=== PATIENT | male | born 1940 | race Caucasian/White ===

== ENCOUNTER 2018-08-23 14:54 | Inpatient (IN) | payer OTHER, BC ==
[2018-08-23] MEDS ORDERED: NA CHLORIDE 0.9% 1,000 ML ONE (15:39)
--- NOTE | 2018-08-23 15:54 | RAD REPORT ---
EXAM DESCRIPTION: RAD - Chest Single View - 08/23/2018 3:40 pm CLINICAL HISTORY: ABDOMINAL DISTENTION Chest pain. COMPARISON: Abdomen Acute Series dated 02/12/2017 FINDINGS: Portable technique limits examination quality. The lungs are grossly clear. The heart is normal in size. No displaced fractures. IMPRESSION: No acute intrathoracic process suspected.
[2018-08-23 15:56] LABS: Absolute Lymphocytes (CBC) 0.7 K/uL (0.7-4.9); Absolute Monocytes 0.8 K/uL (0.1-1.3); Absolute Neutrophil 9.4 K/uL (1.8-8.0); Basophils % 0.4 % (0-1.3); Eosinophils % 0.3 % (0-4.4); Hematocrit 49.3 % (39.6-49.0); Lymphocytes % 6.5 % (15.3-44.8); MPV 7.2 fL (7.6-11.3); Monocytes % 7.6 % (3.3-12.3); RBC Red Blood Cell Count 5.06 M/uL (4.33-5.43)
[2018-08-23 15:59] LABS: Protime INR 1.03
[2018-08-23] MEDS ORDERED: PROMETHAZINE 25 MG/ML VIAL ONE ×2 (16:04→18:43)
--- NOTE | 2018-08-23 16:24 | EKG ---
Test Date: 2018-08-23 Test Time: 15:42:51 Plate Embosser: ANA MEASUREMENT RESULTS: Intervals: Rate: 89 DE: 216 QRSD: 136 QT: 374 QTc: 455 [place]: P: 42 DE: 216 QRS: 0 T: -17 INTERPRETIVE STATEMENTS: Sinus rhythm with 1st degree AV block with premature atrial complexes Right bundle branch block Inferior infarct, age undetermined Abnormal ECG Compared to ECG 02/12/2017 09:44:50 Atrial premature complex(es) now present First degree AV block now present Right bundle-branch block now present Myocardial infarct finding now present Ventricular premature complex(es) no longer present Left ventricular hypertrophy no longer present Electronically Signed On 08-23-18 16:24:06 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
[2018-08-23 16:28] LABS: ALT/SGPT 25 U/L (12-78); AST/SGOT 27 U/L (15-37); Alkaline Phosphatase 75 U/L (45-117); BUN Blood Urea Nitrogen 16 mg/dL (7-18); Bicarbonate 28 mmol/L (21-32); Bilirubin Direct 0.5 mg/dL (0-0.2); Bilirubin Total 1.9 mg/dL (0.2-1.0); Glucose Level 135 mg/dL (74-106); Magnesium 2.2 mg/dL (1.8-2.4); NT PRO-BNP 49 pg/mL (<450); Protein, Total 7.6 g/dL (6.4-8.2); Sodium Level 141 mmol/L (136-145); Troponin (Emerg Dept Use Only) < 0.02 ng/mL (0.0-0.045)
[2018-08-23] MEDS ORDERED: FENTANYL CITR 100 MCG/2 ML ONE ×2 (17:16→20:12)
--- NOTE | 2018-08-23 18:56 | RAD REPORT ---
EXAM DESCRIPTION: CTAbdomen Pelvis W Contrast - 08/23/2018 6:26 pm CLINICAL HISTORY: Abdominal pain. Abd pain;Abdominal distention COMPARISON: Abdomen Pelvis W Contrast dated 02/12/2017 TECHNIQUE: Biphasic CT imaging of the abdomen and pelvis was performed with 100 ml non-ionic IV cont rast. All CT scans are performed using dose optimization technique as appropriate and may include automated exposure control or mA/KV adjustment according to patient size. FINDINGS: The lung bases are clear. Mild diffuse fatty liver is present. Cholecystectomy clips seen. The spleen, pancreas, adrenal glands and kidneys show no acute process. Multiple nonobstructing bilateral renal caliceal stones are prese nt. Several dilated small bowel loops are seen in the mid abdomen near the site of hernia mesh anteriorly . Focal point of transition is noted in the anterior mid abdomen (image 57/100). Findings are compati ble with a mild to mechanical small-bowel obstruction. Several diverticula are present involving the sigmoid colon. The appendix is normal. No evidence of significant lymphadenopathy. No suspicious bony findings. Small fat containing right inguinal hernia. IMPRESSION: Mild to moderate partial mechanical small-bowel obstruction is identified. Point of villanueva sition is identified in the anterior mid abdomen (image 57/100).
[2018-08-23] MEDS ORDERED: LIDOCAINE VISCOUS 2% SOLN 15 ML UDC ONE (20:01)
[2018-08-23] MEDS ORDERED: METRONIDAZOLE 500mg IVPB 500 MG/100 ML BAG IV ONE (20:02)
[2018-08-23] MEDS ORDERED: CIPROFLOXACIN 400mg IV 400 MG/200 ML BAG IV ONE (20:02)
--- NOTE | 2018-08-23 20:10 | EDPHYS ---
Physician Documentation [facility] Name: Saul Cherry Age: 77 yrs Sex: Male : 1940 Arrival Date: 08/23/2018 Time: 14:58 Bed 28 Private MD: out of town, doctor ED Physician Julio Jett HPI: 08/23 15:53 This 77 yrs old Male presents to ER via Ambulatory with complaints of snw Abdominal Pain, Vomiting. 15:53 The patient presents with abdominal pain abdominal distention in the upper abdomen, snw that is diffuse. Onset: The symptoms/episode began/occurred suddenly, 0220. The symptoms do not radiate. Associated signs and symptoms: Pertinent positives: nausea and vomiting. The symptoms are described as crampy, steady. Severity of pain: At its worst the pain was moderate severe. The patient has experienced a previous episode. It is unknown whether or not the patient has recently seen a physician. pt has had several abd surgeries. Dr. Castro has been his previous surgeon. Historical: - Allergies: 15:09 Fosamax; ss - Home Meds: 15:09 Lipitor 40 mg Oral tab 1 tab once daily [Active]; aspirin 81 mg Oral chew 1 tab once ss daily [Active]; allopurinol 100 mg Oral tab 1 tab once daily [Active]; levothyroxine 50 mcg tab 1 tab once daily [Active]; losartan 25 mg oral tab 1 tab once daily [Active]; - PMHx: 15:09 Hyperlipidemia; Hypothyroidism; Kidney stones; small bowel obstruction; ss - PSHx: 15:09 AAA repair; Hernia repair; Cholecystectomy; ss - Immunization history:: Adult Immunizations up to date. - Social history:: Smoking status: Patient uses tobacco products, chewing tobacco. - Ebola Screening: : Patient denies exposure to infectious person Patient denies travel to an Ebola-affected area in the 21 days before illness onset. ROS: 15:53 Constitutional: Negative for fever, chills, and weight loss, Eyes: Negative for injury, snw pain, redness, and discharge, ENT: Negative for injury, pain, and discharge, Neck: Negative for injury, pain, and swelling, Cardiovascular: Negative for chest pain, palpitations, and edema, Respiratory: Negative for shortness of breath, cough, wheezing, and pleuritic chest pain, Back: Negative for injury and pain, : Negative for injury, bleeding, discharge, and swelling, MS/Extremity: Negative for injury and deformity, Skin: Negative for injury, rash, and discoloration, Neuro: Negative for headache, weakness, numbness, tingling, and seizure. 15:53 Abdomen/GI: Positive for abdominal pain, nausea and vomiting, abdominal distension, began suddenly at 0220. Exam: 15:52 Constitutional: This is a well developed, well nourished patient who is awake, alert, snw and in no acute distress. Head/Face: Normocephalic, atraumatic. Eyes: Pupils equal round and reactive to light, extra-ocular motions intact. Lids and lashes normal. Conjunctiva and sclera are non-icteric and not injected. Cornea within normal limits. Periorbital areas with no swelling, redness, or edema. ENT: Nares patent. No nasal discharge, no septal abnormalities noted. Tympanic membranes are normal and external auditory canals are clear. Oropharynx with no redness, swelling, or masses, exudates, or evidence of obstruction, uvula midline. Mucous membranes moist. Neck: Trachea midline, no thyromegaly or masses palpated, and no cervical lymphadenopathy. Supple, full range of motion without nuchal rigidity, or vertebral point tenderness. No Meningismus. Chest/axilla: Normal chest wall appearance and motion. Nontender with no deformity. No lesions are appreciated. 15:52 Respiratory: Lungs have equal breath sounds bilaterally, clear to auscultation and percussion. No rales, rhonchi or wheezes noted. No increased work of breathing, no retractions or nasal flaring. 15:52 Back: No spinal tenderness. No costovertebral tenderness. Full range of motion. 15:52 MS/ Extremity: Pulses equal, no cyanosis. Neurovascular intact. Full, normal range of motion. Neuro: Awake and alert, GCS 15, oriented to person, place, time, and situation. Cranial nerves II-XII grossly intact. Motor strength 5/5 in all extremities. Sensory grossly intact. Cerebellar exam normal. Normal gait. Psych: Awake, alert, with orientation to person, place and time. Behavior, mood, and affect are within normal limits. 15:52 Cardiovascular: Rate: tachycardic, Rhythm: regular, Heart sounds: normal, Edema: pedal edema, that is mild, that is moderate. 15:52 Abdomen/GI: Inspection: scar(s), are noted in the midline, Bowel sounds: diminished, in the right upper quadrant and left upper quadrant, Palpation: mild abdominal tenderness, distended. 15:52 Skin: Appearance: Color: pale, Temperature: warm, Moisture: dry. Vital Signs: 15:09 BP 124 / 85; Pulse 107; Resp 17; Temp 97.5(O); Pulse Ox 95% on R/A; Weight 99.79 kg; ss Height 70 in. (177.80 cm); Pain 3/10; 16:10 BP 127 / 75; Pulse 86; Resp 18; Pulse Ox 95% on R/A; tw2 17:24 BP 137 / 82; Pulse 92; Resp 17; Pulse Ox 95% on R/A; Pain 8/10; tw2 18:37 BP 139 / 71; Pulse 103; Resp 18; Pulse Ox 95% on R/A; tw2 19:00 BP 122 / 73; Pulse 105; Resp 18; Pulse Ox 95% on R/A; tw2 20:00 BP 137 / 76; Pulse 107; Resp 20 S; Pulse Ox 90% on R/A; bb 21:00 BP 103 / 60; Pulse 104; Resp 14 S; Pulse Ox 92% on R/A; bb 22:08 BP 109 / 73; Pulse 101; Resp 18 S; Pulse Ox 96% on R/A; bb 15:09 Body Mass Index 31.57 (99.79 kg, 177.80 cm) ss MDM: 15:51 Patient medically screened. snw 18:33 Data reviewed: vital signs, nurses notes. Data interpreted: Pulse oximetry: on room air snw is 95 %. Interpretation: acceptable. ED course: pt with significant vomiting on the way back from CT, phenergan 12.5mg IV ordered. Discussed possible NGT insertion.. 08/23 15:22 Order name: Basic Metabolic Panel; Complete Time: 16:38 snw 08/23 15:22 Order name: CBC with Diff; Complete Time: 16:01 snw 08/23 15:22 Order name: LFT's; Complete Time: 16:38 snw 08/23 15:22 Order name: Magnesium; Complete Time: 16:38 snw 08/23 15:22 Order name: NT PRO-BNP; Complete Time: 16:38 snw 08/23 15:22 Order name: PT-INR; Complete Time: 16:03 snw 08/23 15:22 Order name: Troponin (emerg Dept Use Only); Complete Time: 16:38 snw 08/23 15:22 Order name: Blood Culture Adult (2) w 08/23 20:30 Order name: Urine Dipstick--Ancillary (enter results); Complete Time: 21:43 ag4 08/23 22:15 Order name: Basic Metabolic Panel EDMS 08/23 22:15 Order name: Basic Metabolic Panel EDMS 08/23 22:15 Order name: CBC with Automated Diff EDMS 08/23 22:15 Order name: CBC with Automated Diff EDMS 08/23 22:15 Order name: Lipase EDMS 08/23 15:22 Order name: XRAY Chest (1 view); Complete Time: 16:01 w 08/23 15:22 Order name: EKG; Complete Time: 15:23 w 08/23 15:22 Order name: Cardiac monitoring; Complete Time: 15:46 w 08/23 15:22 Order name: EKG - Nurse/Tech; Complete Time: 15:46 w 08/23 15:22 Order name: IV Saline Lock; Complete Time: 15:47 w 08/23 15:22 Order name: CT Abd/Pelvis - W/Contrast; Complete Time: 19:04 w 08/23 22:14 Order name: NPO [facility] 08/23 22:15 Order name: Lipase [facility] 08/23 15:22 Order name: Labs collected and sent; Complete Time: 15:47 w 08/23 15:22 Order name: O2 Per Protocol; Complete Time: 15:47 w 08/23 15:22 Order name: O2 Sat Monitoring; Complete Time: 15:47 w 08/23 19:42 Order name: NG Tube; Complete Time: 20:27 snw Administered Medications: 15:46 Drug: NS 0.9% 1000 ml Route: IV; Rate: 125 ml/hr; Site: left antecubital; tw2 23:04 Follow up: IV Status: Infusion continued upon admission bb 23:27 Follow up: IV Status: Completed infusion; IV Intake: 718ml bb 15:58 Drug: Phenergan 6.25 mg Route: IVP; Site: left antecubital; aj1 16:20 Follow up: Response: No adverse reaction; Nausea is decreased tw2 17:10 Drug: fentaNYL (PF) 50 mcg Route: IVP; Site: left antecubital; tw2 17:55 Follow up: Response: No adverse reaction tw2 18:35 Drug: Phenergan 12.5 mg Route: IVP; Site: left antecubital; tw2 19:00 Follow up: Response: No adverse reaction; Nausea is decreased tw2 20:14 Drug: Flagyl 500 mg Volume: 100 ml; Route: IVPB; Rate: 200 ml/hr; Infused Over: 30 bb mins; Site: left antecubital; 21:11 Follow up: IV Status: Completed infusion; IV Intake: 100ml bb 20:14 Drug: Ativan 1 mg Route: IVP; Site: left antecubital; bb 21:00 Follow up: Response: Marked relief of symptoms bb 20:14 Drug: fentaNYL (PF) 12.5 mcg Route: IVP; Site: left antecubital; bb 21:00 Follow up: Response: Pain is decreased bb 21:12 Drug: Cipro 400 mg Volume: 200 ml; Route: IVPB; Infused Over: 60 mins; Site: left bb antecubital; 22:12 Follow up: IV Status: Completed infusion; IV Intake: 200ml bb Disposition: 08/23/18 20:09 Hospitalization ordered by Alfredito Castro for Inpatient Admission. Preliminary diagnosis is Small bowel obstruction. - Bed requested for Telemetry/MedSurg (Inpatient). - Status is Inpatient Admission. bb - Condition is Stable. - Problem is an acute exacerbation. - Symptoms are unchanged. UTI on Admission? No Addendum: 08/25/2018 10:28 Co-signature as Attending Physician, Julio Jett MD. g s Signatures: Dispatcher [employer] EDNV Magdalena Vences RN SUNDAR ajDiane Velasquez RN RN kl Therrien, Shelly, SUSAN-C ADMITTING COUNSELOR-Estela Post RN RN bb Smirch, Shelby, RN RN ss Wise, Tara, RN RN tw2 Julio Jett MD MD Corrections: (The following items were deleted from the chart) 08/23 22:36 20:09 Hospitalization Ordered by Alfredito Castro MD for Inpatient Admission. Preliminary kl diagnosis is Small bowel obstruction. Bed requested for Telemetry/MedSurg (Inpatient). Status is Inpatient Admission. Condition is Stable. Problem is an acute exacerbation. Symptoms are unchanged. UTI on Admission? No. snw 23:27 22:36 08/23/2018 20:09 Hospitalization Ordered by Alfredito Castro MD for Inpatient bb Admission. Preliminary diagnosis is Small bowel obstruction. Bed requested for Telemetry/MedSurg (Inpatient). Status is Inpatient Admission. Condition is Stable. Problem is an acute exacerbation. Symptoms are unchanged. UTI on Admission? No. kl
--- NOTE | 2018-08-23 20:10 | ER ---
Nurse's Notes [facility] Name: Salu Cherry Age: 77 yrs Sex: Male : 1940 Arrival Date: 08/23/2018 Time: 14:58 Bed 28 Private MD: out of town, doctor Diagnosis: Small bowel obstruction Presentation: 08/23 15:04 Presenting complaint: Patient states: abd pain, N/V that began at 0200 this morning. Pt ss has a history of a bowel obstruction and is concerned that it may be another one. Transition of care: patient was not received from another setting of care. Onset of symptoms was August 23, 2018. Risk Assessment: Do you want to hurt yourself or someone else? Patient reports no desire to harm self or others. Initial Sepsis Screen: Does the patient meet any 2 criteria? No. Patient's initial sepsis screen is negative. Does the patient have a suspected source of infection? No. Patient's initial sepsis screen is negative. Care prior to arrival: None. 15:04 Method Of Arrival: Ambulatory ss 15:04 Acuity: TORRIE 3 ss Historical: - Allergies: 15:09 Fosamax; ss - Home Meds: 15:09 Lipitor 40 mg Oral tab 1 tab once daily [Active]; aspirin 81 mg Oral chew 1 tab once ss daily [Active]; allopurinol 100 mg Oral tab 1 tab once daily [Active]; levothyroxine 50 mcg tab 1 tab once daily [Active]; losartan 25 mg oral tab 1 tab once daily [Active]; - PMHx: 15:09 Hyperlipidemia; Hypothyroidism; Kidney stones; small bowel obstruction; ss - PSHx: 15:09 AAA repair; Hernia repair; Cholecystectomy; ss - Immunization history:: Adult Immunizations up to date. - Social history:: Smoking status: Patient uses tobacco products, chewing tobacco. - Ebola Screening: : Patient denies exposure to infectious person Patient denies travel to an Ebola-affected area in the 21 days before illness onset. Screenin:09 Abuse screen: Denies threats or abuse. Nutritional screening: No deficits noted. tw2 Tuberculosis screening: No symptoms or risk factors identified. Fall Risk None identified. Assessment: 16:03 General: Appears uncomfortable, Behavior is calm, cooperative, appropriate for age. tw2 Pain: Complains of pain in left upper quadrant and right upper quadrant. Neuro: Level of Consciousness is awake, alert, obeys commands, Oriented to person, place, time, situation. Cardiovascular: Heart tones S1 S2 Capillary refill < 3 seconds Patient's skin is warm and dry. Respiratory: Airway is patent Respiratory effort is even, unlabored, Respiratory pattern is regular, symmetrical, Breath sounds are clear bilaterally. GI: Abdomen is round distended, Bowel sounds present X 4 quads. Abdomen is tender to palpation X 4 quads. : No signs and/or symptoms were reported regarding the genitourinary system. EENT: No signs and/or symptoms were reported regarding the EENT system. Derm: No signs and/or symptoms reported regarding the dermatologic system. Musculoskeletal: Range of motion: intact in all extremities. 16:11 Reassessment: Patient appears in no apparent distress at this time. Patient and/or tw2 family updated on plan of care and expected duration. Pain level reassessed. Patient is alert, oriented x 3, equal unlabored respirations, skin warm/dry/pink. pt states "the pain comes in waves", asked he would like something for pain, pt states "no i hate to take stuff Im ok right now", pt instructed that if pain gets worse to feel free to press the call light. 16:33 Reassessment: pt attempted to drink oral contrast for CT at this time. will notify CT tw2 once pt has completed drink. 16:40 Reassessment: Patient and/or family updated on plan of care and expected duration. Pain tw2 level reassessed. Patient is alert, oriented x 3, equal unlabored respirations, skin warm/dry/pink. pt completed oral contrast, Josey,Tech in CT notified. 17:08 Reassessment: pt c/o worsening pain, provider notified, medicated as ordered. tw2 18:35 Reassessment: pt in w/c from CT, pt actively vomiting, medicated as ordered., pt now tw2 c/o pain, provider notified. 18:45 Reassessment: pt refused pain medicine at this time, states "i will just wait for a tw2 little bit". 19:30 Pain: Complains of pain in abdomen. Neuro: Level of Consciousness is awake, alert, bb obeys commands, Oriented to person, place, time, situation. Cardiovascular: Heart tones S1 S2 present Capillary refill < 3 seconds Patient's skin is warm and dry. Respiratory: Respiratory effort is even, unlabored, Respiratory pattern is regular, Breath sounds are clear bilaterally. GI: Abdomen is distended, Bowel sounds present X 4 quads. Abdomen is tender to palpation X 4 quads. Reports lower abdominal pain, upper abdominal pain. Derm: Skin is pink, warm \\T\\ dry. Musculoskeletal: Circulation, motion, and sensation intact. 20:30 Reassessment: No changes from previously documented assessment. IV site intact, patent bb with fluids infusing, family at bedside. 21:18 Reassessment: pt appears to be sleeping, eyes closed, resp unlabored, IV site intact, bb patent with fluids infusing awaiting room assignment. 22:06 Reassessment: pt appears to be sleeping, eyes closed, resp unlabored, NG tube to low bb intermittent suction with dark colored fluid, IV site intact, patent with fluids infusing awaiting room assignment. Vital Signs: 15:09 BP 124 / 85; Pulse 107; Resp 17; Temp 97.5(O); Pulse Ox 95% on R/A; Weight 99.79 kg; Height 70 in. (177.80 cm); Pain 3/10; 16:10 BP 127 / 75; Pulse 86; Resp 18; Pulse Ox 95% on R/A; tw2 17:24 BP 137 / 82; Pulse 92; Resp 17; Pulse Ox 95% on R/A; Pain 8/10; tw2 18:37 BP 139 / 71; Pulse 103; Resp 18; Pulse Ox 95% on R/A; tw2 19:00 BP 122 / 73; Pulse 105; Resp 18; Pulse Ox 95% on R/A; tw2 20:00 BP 137 / 76; Pulse 107; Resp 20 S; Pulse Ox 90% on R/A; bb 21:00 BP 103 / 60; Pulse 104; Resp 14 S; Pulse Ox 92% on R/A; bb 22:08 BP 109 / 73; Pulse 101; Resp 18 S; Pulse Ox 96% on R/A; bb 15:09 Body Mass Index 31.57 (99.79 kg, 177.80 cm) ED Course: 14:58 Patient arrived in ED. sb2 14:58 out of town, doctor is Private Physician. sb2 15:06 Triage completed. ss 15:09 Arm band placed on right wrist. ss 15:10 Placed in gown. Bed in low position. Adult w/ patient. residential monitor on. Pulse ox on. tw2 NIBP on. Warm blanket given. 15:18 Alicia Milton RN is Primary Nurse. tw2 15:20 Lanette Cuevas FNP-C is PHCP. snw 15:20 Julio Jett MD is Attending Physician. snw 15:35 Inserted saline lock: 20 gauge in left antecubital area, using aseptic technique. Blood tw2 collected. 15:40 XRAY Chest (1 view) In Process Unspecified. EDMS 18:25 CT completed. Patient tolerated procedure well. Patient moved back from CT. bq 18:26 CT Abd/Pelvis - W/Contrast In Process Unspecified. EDMS 19:00 Report given to SUNDAR Palmer. tw2 20:07 Alfredito Castro MD is Hospitalizing Provider. snw 20:27 NGT: inserted 16 Fr. via left nare. verified placement of air over stomach, verified bb return of gastric contents, to intermittent suction. Returned gastric contents. Patient tolerated well. 21:20 No provider procedures requiring assistance completed. Patient admitted, IV remains in bb place. Administered Medications: 15:46 Drug: NS 0.9% 1000 ml Route: IV; Rate: 125 ml/hr; Site: left antecubital; tw2 23:04 Follow up: IV Status: Infusion continued upon admission bb 23:27 Follow up: IV Status: Completed infusion; IV Intake: 718ml bb 15:58 Drug: Phenergan 6.25 mg Route: IVP; Site: left antecubital; aj1 16:20 Follow up: Response: No adverse reaction; Nausea is decreased tw2 17:10 Drug: fentaNYL (PF) 50 mcg Route: IVP; Site: left antecubital; tw2 17:55 Follow up: Response: No adverse reaction tw2 18:35 Drug: Phenergan 12.5 mg Route: IVP; Site: left antecubital; tw2 19:00 Follow up: Response: No adverse reaction; Nausea is decreased tw2 20:14 Drug: Flagyl 500 mg Volume: 100 ml; Route: IVPB; Rate: 200 ml/hr; Infused Over: 30 bb mins; Site: left antecubital; 21:11 Follow up: IV Status: Completed infusion; IV Intake: 100ml bb 20:14 Drug: Ativan 1 mg Route: IVP; Site: left antecubital; bb 21:00 Follow up: Response: Marked relief of symptoms bb 20:14 Drug: fentaNYL (PF) 12.5 mcg Route: IVP; Site: left antecubital; bb 21:00 Follow up: Response: Pain is decreased bb 21:12 Drug: Cipro 400 mg Volume: 200 ml; Route: IVPB; Infused Over: 60 mins; Site: left bb antecubital; 22:12 Follow up: IV Status: Completed infusion; IV Intake: 200ml bb Intake: 21:11 IV: 100ml; Total: 100ml. bb 22:12 IV: 200ml; Total: 300ml. bb 23:27 IV: 718ml; Total: 1018ml. bb Outcome: 20:09 Decision to Hospitalize by Provider. snw 21:20 Instructed on the need for admit. bb 23:02 Admitted to Tele accompanied by tech, via stretcher, room 213, with chart, Report bb called to Valery KWOK 23:02 Condition: stable 23:27 Patient left the ED. bb Signatures: Dispatcher [employer] EDMS Magdalena Vences RN RN aj1 Lanette Cuevas, FOUNDRY TENDER-C FOUNDRY TENDER-Josey Munguia Brenda RN RN bb Mattie Caldera, RN RN Alicia Barker RN RN tw2 Ginny Sanford sb2 Corrections: (The following items were deleted from the chart) 19:29 19:00 BP 122 / 73; Pulse 150bpm; Resp 18bpm; Pulse Ox 95% RA; tw2 tw2
[2018-08-23] MEDS ORDERED: LORazepam 2 MG/ML VIAL ONE (20:12)
[2018-08-23 21:39] LABS: Urine Blood 1+ (NEG); Urine Glucose NEGATIVE (NEG); Urine Protein NEGATIVE (NEG); Urine Specific Gravity 1.015 (1.005-1.030); Urine pH 6.5 (5.0-7.0)
[2018-08-23] MEDS: D5 0.45 NS 1,000 ML with POTASSIUM CL 40 MEQ IV SCH ×2 (22:14)
[2018-08-23] MEDS ORDERED: MORPHINE 4 MG/ML SYR IV PRN (22:14)
[2018-08-23] MEDS: CIPROFLOXACIN 400mg IV 400 MG/200 ML BAG IV SCH (22:14)
[2018-08-23] MEDS ORDERED: ONDANSETRON 4 MG/2 ML VIAL IV PRN (22:14)
[2018-08-23 23:45] VITALS: BMI 32.6
[2018-08-24] MEDS ORDERED: KCL 20 MEQ/100 mL IVPB 40 MEQ/200 ML BAG IV ONE (00:26)
[2018-08-24] MEDS ORDERED: D5 0.45 NS 0 ML IV ONE (00:27)
[2018-08-24] MEDS: D5 0.45 NS 1,000 ML with POTASSIUM CL 40 MEQ IV SCH ×10 (00:30→20:11)
[2018-08-24 01:25] LABS: Urine Appearance CLEAR; Urine Bilirubin NEGATIVE (NEG); Urine Blood 2+ (NEG); Urine Color YELLOW; Urine Glucose NEGATIVE (NEG); Urine Protein NEGATIVE (NEG); Urine Specific Gravity >=1.030 (1.005-1.030)
[2018-08-24 01:36] LABS: Urine Microscopic Reflex ORDER UMIC
[2018-08-24 02:30] LABS: Urine Bacteria <20 /HPF (NONE SEEN)
[2018-08-24 02:31] LABS: Urine Culture Reflex Order NOT NEEDED
[2018-08-24] MEDS: METRONIDAZOLE 500mg IVPB 500 MG/100 ML BAG IV SCH ×3 (05:08→20:11)
[2018-08-24] MEDS ORDERED: D5 0.45 NS 1,000 ML IV ONE (05:34)
[2018-08-24 06:04] LABS: Absolute Lymphocytes (CBC) 0.9 K/uL (0.7-4.9); Absolute Neutrophil 7.5 K/uL (1.8-8.0); Basophils % 0.2 % (0-1.3); Eosinophils % 0.6 % (0-4.4); Hematocrit 43.8 % (39.6-49.0); Lymphocytes % 9.3 % (15.3-44.8); MPV 7.2 fL (7.6-11.3); Monocytes % 10.5 % (3.3-12.3); RBC Red Blood Cell Count 4.52 M/uL (4.33-5.43)
[2018-08-24 06:32] LABS: Potassium 4.1 mmol/L (3.5-5.1)
[2018-08-24] MEDS: CIPROFLOXACIN 400mg IV 400 MG/200 ML BAG IV SCH ×2 (09:11→20:11)
[2018-08-24] MEDS: FENTANYL CITR 100 MCG/2 ML IV PRN (09:58)
[2018-08-24] MEDS ORDERED: DIAZEPAM 5 MG TABLET PO ONE ×2 (13:59→14:11)
[2018-08-24] MEDS ORDERED: MINERAL OIL 30 ML UCUP PO ONE (14:00)
--- NOTE | 2018-08-24 14:25 | P.HP ---
Certification for Inpatient Patient admitted to: Observation With expected LOS: <2 Midnights Patient will require the following post-hospital care: None Practitioner: I am a practitioner with admitting privileges, knowledge of patient current condition, hospital course, and medical plan of care. Services: Services provided to patient in accordance with Admission requirements found in Title 42 Section 412.3 of the Code of Federal Regulations Patient History Date of Service: 08/24/18 Allergies alendronate sodium [From Fosamax] Allergy (Verified 02/12/17 07:37) Hives Home Medications: Allopurinol [Zyloprim*] 1 tab PO BEDTIME 08/23/18 Aspirin Chewable [Aspirin Chewable*] 1 tab PO BEDTIME 08/23/18 Atorvastatin Calcium [Lipitor] 40 mg PO BEDTIME 08/23/18 Levothyroxine Sodium 1 tab PO 0630 08/23/18 Losartan Potassium [Cozaar] 1 tab PO BEDTIME 08/23/18 - Past Medical/Surgical History Has patient received pneumonia vaccine in the past: No Diabetic: No -: sbo (december 2015) -: AAA -: hyperlipidemia -: hypothyroidism -: AAA surgery -: hernia repair -: geronimo - Family History Father -: Lung disease Notes: Mother -: Heart disease, Hypertension, Diabetes Notes: rheumatic fever as child. Sister -: Other (see notes) Notes: hypothyroidism, mental disorder cannot recall "my sister lives her own life, cannot work, eats great, 75 years old" - Social History Smoking Status: Never smoker Alcohol use: No CD- Drugs: No Caffeine use: Yes Place of Residence: Home Review of Systems 10-point ROS is otherwise unremarkable Physical Examination - Vital Signs Temperature: 97.7 F Blood Pressure: 153/78 Pulse: 89 Respirations: 18 Pulse Ox (%): 94 - Physical Exam General: Alert, In no apparent distress HEENT: Sclerae nonicteric Neck: Supple Respiratory: Normal air movement Cardiovascular: Normal S1 S2 Gastrointestinal: W/out succussion splash (Mildly distended abdomen, and periumbilical soreness but no guarding or rebound), No masses, No rebound, No guarding - Studies Laboratory Data (last 24 hrs) 08/23/18 15:35: PT 12.2, INR 1.03 08/23/18 15:35: WBC 11.0 H, Hgb 16.9, Hct 49.3 H, Plt Count 249 08/23/18 15:35: Sodium 141, Potassium 4.0, BUN 16, Creatinine 1.31 H, Glucose 135 H, Magnesium 2.2, Total Bilirubin 1.9 H, AST 27, ALT 25, Alkaline Phosphatase 75 Imagings Data: The T scan demonstrates area of transition just below work he has mesh suggestive of partial small-bowel obstruction. Assessment and Plan - Plan This patient, who was well known to me, has a partial small-bowel obstruction. He has a history of adhesions in the past. At the current time is stable, minimal drainage out through his nasogastric tube. We will start him on a course of mineral oil, and intermittent suction of his NG tube. He will also receive IV pain medication as well as an oral Valium. The risks of this treatment, the possible need for further surgeries and procedures was outlined. He understands and is content with this plan. - Advance Directives Does patient have a Living Will: Yes Does patient have a Durable POA for Healthcare: Yes
[2018-08-25] MEDS ORDERED: MINERAL OIL 30 ML UCUP PO ONE
[2018-08-25] MEDS: METRONIDAZOLE 500mg IVPB 500 MG/100 ML BAG IV SCH ×3 (03:58→20:19)
[2018-08-25] MEDS: FENTANYL CITR 100 MCG/2 ML IV PRN (05:58)
[2018-08-25] MEDS: D5 0.45 NS 1,000 ML with POTASSIUM CL 40 MEQ IV SCH ×6 (05:59→18:51)
[2018-08-25] MEDS: CIPROFLOXACIN 400mg IV 400 MG/200 ML BAG IV SCH ×2 (09:35→20:19)
[2018-08-25] MEDS: ACETAMINOPHEN 500 MG TAB PO PRN ×2 (12:02→20:20)
--- NOTE | 2018-08-25 13:24 | P.PN ---
Date of Service: 08/25/18 S: Nasogastric tube has been removed this morning. Patient feels much better. Minimal abdominal discomfort. Has not eaten yet but has full liquids ordered for lunch. Small bowel movement today. He is passing gas per rectum. O: Abdomen remains soft, patient is sitting up in a chair. A: Partial small-bowel obstruction appears to have resolved with bowel rest and NG P: Continue current therapy
[2018-08-25 21:23] VITALS: O2SAT 97
[2018-08-26] MEDS: D5 0.45 NS 1,000 ML with POTASSIUM CL 40 MEQ IV SCH ×4 (01:10→04:24)
[2018-08-26] MEDS: METRONIDAZOLE 500mg IVPB 500 MG/100 ML BAG IV SCH (04:23)
[2018-08-26 06:41] VITALS: BP 109/66; TEMP 97.4
--- NOTE | 2018-09-02 13:40 | P.DS ---
Admission Date: 08/23/18 Discharge Date: 09/02/18 Discharge Condition: GOOD Reason for Admission: Partial small-bowel obstruction Brief History of Present Illness: This 77-year-old male presents emergency room with severe abdominal pain for diagnosis and treatment. Hospital Course: This patient presents emergency room with severe abdominal pain. He has had episodes of small-bowel obstruction a past. He was admitted for observation pain control. Over the course next 48 hr since partial small-bowel obstruction cleared, he was able tolerate diet, and was discharged home. He will follow up with me in my office. The patient was informed should ended any questions or problems, or recurrence of his issues to return to the emergency room in or contact me. He is were content with this course of action. Vital Signs/Physical Exam: Temp Pulse Resp BP Pulse Ox 97.4 F 101 H 18 109/66 93 08/26/18 04:00 08/26/18 04:00 08/26/18 04:00 08/26/18 04:00 08/26/18 04:00 Laboratory Data at Discharge: WBC 9.5 K/uL (4.3-10.9) 08/24/18 05:39 Hgb 15.2 g/dL (13.6-17.9) 08/24/18 05:39 Hct 43.8 % (39.6-49.0) 08/24/18 05:39 Plt Count 209 K/uL (152-406) 08/24/18 05:39 PT 12.2 SECONDS (9.5-12.5) 08/23/18 15:35 INR 1.03 08/23/18 15:35 Sodium 140 mmol/L (136-145) 08/24/18 05:39 Potassium 4.1 mmol/L (3.5-5.1) 08/24/18 05:39 BUN 15 mg/dL (7-18) 08/24/18 05:39 Creatinine 1.05 mg/dL (0.55-1.3) 08/24/18 05:39 Glucose 148 mg/dL (74-106) H 08/24/18 05:39 Magnesium 2.2 mg/dL (1.8-2.4) 08/23/18 15:35 Total Bilirubin 1.9 mg/dL (0.2-1.0) H 08/23/18 15:35 AST 27 U/L (15-37) 08/23/18 15:35 ALT 25 U/L (12-78) 08/23/18 15:35 Alkaline Phosphatase 75 U/L (45-117) 08/23/18 15:35 Lipase 77 U/L (73-393) 08/24/18 05:39 Home Medications: Allopurinol [Zyloprim*] 1 tab PO BEDTIME 08/23/18 Aspirin Chewable [Aspirin Chewable*] 1 tab PO BEDTIME 08/23/18 Atorvastatin Calcium [Lipitor] 40 mg PO BEDTIME 08/23/18 Levothyroxine Sodium 1 tab PO 0630 08/23/18 Losartan Potassium [Cozaar] 1 tab PO BEDTIME 08/23/18 Followup: Alfredito Castro MD [ACTIVE - CAN ADMIT] - 09/04/18 (Call for appointment)
== END 2018-08-26 08:11 | disposition home or self-care (01) | DRG 390 ==
LOC: ER 14:54 → ERHOLD 22:09 → 2ND 23:03
PROVIDERS: ADMIT Surgery; ATTEND Surgery
DX: K56.600 Partial intestinal obstruction, unspecified as to cause (principal); E78.5 Hyperlipidemia, unspecified; E03.9 Hypothyroidism, unspecified
CPT/HCPCS: 36415; 71045; 74177; 80048; 80076; 81003; 81015; 83690; 83735; 83880; 84484; 85025; 85610; 87040; 93005; 96361; 96365; 96367; 96375; 99285; J0744; J2405; J2550; J3010; J7030; Q9967

== ENCOUNTER 2019-09-02 06:35 | Observation (INO) | payer OTHER, BC ==
[2019-09-02] MEDS ORDERED: ONDANSETRON 4 MG/2 ML VIAL ONE ×2 (06:53→09:21)
[2019-09-02] MEDS ORDERED: NA CHLORIDE 0.9% 1,000 ML ONE ×2 (06:53→09:21)
[2019-09-02 07:02] LABS: Absolute Lymphocytes (CBC) 1.4 K/uL (0.7-4.9); Basophils % 0.6 % (0-1.3); Lymphocytes % 14.2 % (15.3-44.8); MPV 7.4 fL (7.6-11.3); RBC Red Blood Cell Count 4.91 M/uL (4.33-5.43)
[2019-09-02 07:18] LABS: Albumin 4.1 g/dL (3.4-5.0); Bilirubin Direct 0.5 mg/dL (0-0.2); Protein, Total 7.8 g/dL (6.4-8.2)
[2019-09-02] MEDS ORDERED: MORPHINE 4 MG/ML SYR ONE (09:21)
--- NOTE | 2019-09-02 09:25 | RAD REPORT ---
EXAM DESCRIPTION: CT - Abdomen Pelvis W Contrast - 09/02/2019 9:04 am CLINICAL HISTORY: hx of SBO;Abd pain, history of cholecystectomy and aortic aneurysm COMPARISON: Abdomen Pelvis W Contrast dated 08/23/2018; Abdomen Pelvis W Contrast dated 02/12/2017 TECHNIQUE: Biphasic, helical CT imaging of the abdomen and pelvis was performed following 100 ml non -ionic IV contrast. Oral contrast was given. All CT scans are performed using dose optimization technique as appropriate and may include automated exposure control or mA/KV adjustment according to patient size. FINDINGS: Fibrotic lung changes are present with no acute finding. No pericardial effusion. Liver shows a borderline or mild fatty infiltration pattern. No focal liver lesion. Spleen and pancre as show no suspicious findings. Cholecystectomy changes are present with no abnormal biliary tree dil atation. Symmetric renal function is seen with no hydronephrosis or suspicious renal mass. No pyelonephritis o r acute parenchymal process. Nonobstructing renal calculi are present. Partially filled urinary bladd er shows no acute finding. Prostate gland is prominent with a superior lobulated contour that project s into the bladder base. Correlation can be made with PSA values. No adrenal abnormalities. Patient has a very small hiatal hernia. No acute gastric finding. Duodenum is unremarkable. Prominent sigmoid diverticulosis is present without acute diverticulitis. No abnormal stool volume. The append ix is normal. Loops of jejunum are prominent. There is progressive dilatation of the distal jejunum a nd proximal ileum. Small bowel loops are dilated to 3 cm. Distal ileum is decompressed. Transition po int appears to be near the anterior abdominal wall where there is hernia mesh present. No new hernia. Adhesion would be the most likely etiology. An internal hernia would be possible. No free air, free fluid or inflammatory stranding. No mass or bulky lymphadenopathy. No suspicious bony findings. Aortic atherosclerotic changes are present without acute finding. Mild dilatation of the distal aorta and there is ectasia or mild dilatation of the bilateral common iliac arteries. IMPRESSION: Mechanical small bowel obstruction involving the distal jejunum and proximal ileum. Spivey sition point is present for small bowel abuts the hernia mesh in the right mid abdomen. Adhesion would be most likely etiology. An internal hernia would be possible. No mass lesion is prese nt. No free air, pneumatosis or other surgically emergent finding. Prominent lobulated prostate gland projecting into the bladder base. Correlation can be made with PSA values.
--- NOTE | 2019-09-02 09:43 | ER ---
Nurse's Notes [facility] Name: Saul Cherry Age: 78 yrs Sex: Male : 1940 Arrival Date: 09/02/2019 Time: 06:38 Bed 18 Private MD: Diagnosis: Mechanical small bowel obstruction Presentation: 09/02 07:00 Presenting complaint: Patient states: Pt reports he started having abdominal pain ea yesterday at 2030 reports pain got worse this AM. Reports two vomiting episodes. Transition of care: patient was not received from another setting of care. Onset of symptoms was September 02, 2019. Risk Assessment: Do you want to hurt yourself or someone else? Patient reports no desire to harm self or others. Initial Sepsis Screen: Does the patient meet any 2 criteria? No. Patient's initial sepsis screen is negative. Does the patient have a suspected source of infection? No. Patient's initial sepsis screen is negative. Care prior to arrival: None. 07:00 Method Of Arrival: Ambulatory ea 07:00 Acuity: TORRIE 3 ea Triage Assessment: 07:00 General: Appears in no apparent distress. uncomfortable, obese, Behavior is bp cooperative, appropriate for age, anxious. Pain: Complains of pain in abdomen. EENT: No deficits noted. Neuro: No deficits noted. Cardiovascular: No deficits noted. Respiratory: No deficits noted. GI: Reports intolerance of fluids, intolerance of food, nausea, vomiting. : No signs and/or symptoms were reported regarding the genitourinary system. Derm: No deficits noted. Musculoskeletal: No deficits noted. Historical: - Allergies: 07:07 Fosamax; ea - Home Meds: 07:07 losartan 25 mg Oral tab 1 tab once daily [Active]; Lipitor 40 mg Oral tab 1 tab once ea daily [Active]; levothyroxine 50 mcg tab 1 tab once daily [Active]; aspirin 81 mg Oral chew 1 tab once daily [Active]; allopurinol 100 mg Oral tab 1 tab once daily [Active]; - PMHx: 07:07 SMALL BOWEL OBSTRUCTION; Kidney stones; Hypothyroidism; Hyperlipidemia; ea - PSHx: 07:07 Cholecystectomy; Hernia repair; AAA repair; ea - Immunization history:: Adult Immunizations up to date. - Social history:: Smoking status: Patient denies any tobacco usage or history of. - Ebola Screening: : No symptoms or risks identified at this time. - Family history:: not pertinent. - Hospitalizations: : No recent hospitalization is reported. Screenin:59 Abuse screen: Denies threats or abuse. Nutritional screening: No deficits noted. ea Tuberculosis screening: No symptoms or risk factors identified. Fall Risk IV access (20 points). Assessment: 07:05 General: RECD REPORT FROM GABY KWOK. 78YO WM P/W ABDOMINAL PAIN AND BILIOUS VOMITING. bp H/O SBO AND CHOLECYSTECTOMY. PROVIDER EVAL PENDING. 07:05 Pain: Complains of pain in abdomen. GI: Bowel sounds present X 4 quads. Abd is soft X 4 bp quads. 07:13 Reassessment: MD AT B/S. bp 07:24 Reassessment: PT DRINKING PO CONTRAST. bp 07:32 Reassessment: PO CONTRAST COMPLETE, CT NOTIFIED. bp 08:07 Reassessment: Patient is alert, oriented x 3, equal unlabored respirations, skin bp warm/dry/pink. CT PENDING Patient states symptoms have improved. 08:57 Reassessment: PT TO CT WITH CARPENTER HELPER. bp 09:15 Reassessment: PT RETURNED FROM CT. MD AT B/S. bp 09:28 Reassessment: PER MD, INITIAL CT IMPRESSION SUSPICIOUS FOR SBO. SURGERY C/S PENDING. PT bp EXPRESSING SOME RELIEF OF S/S AFTER MEDICATION. 09:59 Reassessment: 12 FR NGT PLACED AND CONFIRMED VIA AUSCULTATION. PT TOLERATED WELL, bp PLACED TO LOW INTERMITTENT WALL SUCTION. BILE NOTED IN NGT RETURN. 11:04 Reassessment: ADMIT IN PROCESS. PT AFFIRMS S/S IMPROVED AFTER NGT PLACED TO SUCTION. bp Vital Signs: 07:04 BP 143 / 89; Pulse 102; Resp 18; Temp 98.0; Pulse Ox 93% ; ea 08:07 BP 155 / 100; Pulse 100; Resp 15; Pulse Ox 94% ; bp 09:18 BP 147 / 79; Pulse 89; Resp 18; Temp 98.2(O); Pulse Ox 94% on R/A; mh5 10:00 BP 145 / 99; Pulse 111; Resp 17; Pulse Ox 93% on R/A; bp 11:03 BP 113 / 79; Pulse 112; Resp 16; Pulse Ox 94% ; bp ED Course: 06:38 Patient arrived in ED. ag3 06:57 Inserted saline lock: 20 gauge in right antecubital area, using aseptic technique. ea Blood collected. 07:04 Triage completed. ea 07:05 Arm band placed on. bp 07:07 Patient has correct armband on for positive identification. Bed in low position. Call ea light in reach. Side rails up X2. 07:10 Isidro Nicole RN is Primary Nurse. bp 07:12 Chencho Vazquez MD is Attending Physician. rn 09:04 CT Abd/Pelvis - PO and IV Contrast In Process Unspecified. EDMS 09:42 Alfredito Castro MD is Hospitalizing Provider. rn 09:58 NGT: inserted 12 Fr. via right nare. verified placement of air over stomach, verified bp return of gastric contents, to intermittent suction. Returned gastric contents. Returned bile. Patient tolerated well. 11:26 No provider procedures requiring assistance completed. Patient admitted, IV remains in bp place. Administered Medications: 06:56 Drug: NS 0.9% 1000 ml Route: IV; Rate: 1 bolus; Site: right antecubital; ea 11:40 Follow up: IV Status: Completed infusion; IV Intake: 1000ml bp 06:56 Drug: Zofran 4 mg Route: IVP; Site: right antecubital; ea 09:58 Follow up: Response: Nausea is decreased bp 09:26 Drug: morphine 4 mg Route: IVP; Site: right antecubital; bp 09:58 Follow up: Response: Pain is decreased bp 09:26 Drug: Zofran 4 mg Route: IVP; Site: right antecubital; bp 09:58 Follow up: Response: Nausea is decreased bp 09:26 Drug: NS 0.9% 1000 ml Route: IV; Rate: 125 ml/hr; Site: right antecubital; bp 11:41 Follow up: IV Status: Infusion continued upon admission bp Intake: 11:40 IV: 1000ml; Total: 1000ml. bp Outcome: 09:43 Decision to Hospitalize by Provider. rn 11:39 Admitted to Med/surg accompanied by tech, family with patient, via wheelchair, room bp 425, with chart, Report called to JESSEE KWOK 11:39 Condition: stable 11:39 Instructed on the need for admit. 12:01 Patient left the ED. ss Signatures: Dispatcher [employer] EDRI Chencho Vazquez MD MD rn Smirch, Shelby, RN RN ss Kelly Demarco [facility] Gaby Parra RN RN Isidro Aburto RN RN Jeanne Worley 3
--- NOTE | 2019-09-02 09:43 | EDPHYS ---
Physician Documentation [facility] Name: Saul Cherry Age: 78 yrs Sex: Male : 1940 Arrival Date: 09/02/2019 Time: 06:38 Bed 18 Private MD: ED Physician Chencho Vazquez HPI: 09/02 07:43 This 78 yrs old Male presents to ER via Ambulatory with complaints of rn Abdominal Pain. 07:43 The patient presents with abdominal pain in the upper abdomen. Onset: The rn symptoms/episode began/occurred last night. The symptoms do not radiate. Associated signs and symptoms: Pertinent positives: nausea and vomiting, Pertinent negatives: blood in stools, chest pain, constipation, diarrhea, fever, shortness of breath, vomiting blood. The symptoms are described as achy. Modifying factors: The symptoms are alleviated by nothing, the symptoms are aggravated by touching the area. Severity of pain: At its worst the pain was moderate in the emergency department the pain has improved. The patient has experienced similar episodes in the past. Reports mid-upper abd pain since last night, has had 3 bowel movements since then, + nausea/vomiting, no fever. reports after last emesis pain has improved. No blood in stool.. Historical: - Allergies: 07:07 Fosamax; ea - Home Meds: 07:07 losartan 25 mg Oral tab 1 tab once daily [Active]; Lipitor 40 mg Oral tab 1 tab once ea daily [Active]; levothyroxine 50 mcg tab 1 tab once daily [Active]; aspirin 81 mg Oral chew 1 tab once daily [Active]; allopurinol 100 mg Oral tab 1 tab once daily [Active]; - PMHx: 07:07 SMALL BOWEL OBSTRUCTION; Kidney stones; Hypothyroidism; Hyperlipidemia; ea - PSHx: 07:07 Cholecystectomy; Hernia repair; AAA repair; ea - Immunization history:: Adult Immunizations up to date. - Social history:: Smoking status: Patient denies any tobacco usage or history of. - Ebola Screening: : No symptoms or risks identified at this time. - Family history:: not pertinent. - Hospitalizations: : No recent hospitalization is reported. ROS: 07:43 Constitutional: Negative for fever, chills, and weight loss, Eyes: Negative for injury, rn pain, redness, and discharge, Neck: Negative for injury, pain, and swelling, Cardiovascular: Negative for chest pain, palpitations, and edema, Respiratory: Negative for shortness of breath, cough, wheezing, and pleuritic chest pain, Abdomen/GI: + abd pain/nausea/vomiting : Negative for injury, bleeding, discharge, and swelling, MS/Extremity: Negative for injury and deformity, Skin: Negative for injury, rash, and discoloration, Neuro: Negative for headache, weakness, numbness, tingling, and seizure. Exam: 07:43 Constitutional: This is a well developed, well nourished patient who is awake, alert, rn and in no acute distress. Head/Face: Normocephalic, atraumatic. ENT: dry MM Cardiovascular: Tachycardic, regular Respiratory: No increased work of breathing, no retractions or nasal flaring. Abdomen/GI: soft, non-tender MS/ Extremity: Pulses equal, no cyanosis. Neurovascular intact. Full, normal range of motion. Equal circumference. Neuro: Awake and alert, GCS 15, oriented to person, place, time, and situation. Cranial nerves II-XII grossly intact. Motor strength 5/5 in all extremities. Sensory grossly intact. Vital Signs: 07:04 BP 143 / 89; Pulse 102; Resp 18; Temp 98.0; Pulse Ox 93% ; ea 08:07 BP 155 / 100; Pulse 100; Resp 15; Pulse Ox 94% ; bp 09:18 BP 147 / 79; Pulse 89; Resp 18; Temp 98.2(O); Pulse Ox 94% on R/A; mh5 10:00 BP 145 / 99; Pulse 111; Resp 17; Pulse Ox 93% on R/A; bp 11:03 BP 113 / 79; Pulse 112; Resp 16; Pulse Ox 94% ; bp MDM: 07:12 Patient medically screened. rn 09:41 Differential diagnosis: bowel obstruction, diverticulitis, non-specific abd pain. Data rn reviewed: vital signs, nurses notes, lab test result(s), radiologic studies, CT scan, and as a result, I will admit patient. Counseling: I had a detailed discussion with the patient and/or guardian regarding: the historical points, exam findings, and any diagnostic results supporting the discharge/admit diagnosis, lab results, radiology results, the need for further work-up and treatment in the hospital. Response to treatment: the patient's symptoms have mildly improved after treatment, and as a result, I will admit patient. Admission orders: after a detailed discussion of the patient's condition and case, the admit orders are written by me. ED course: Consulted with Vladimir Castro, will admit patient o his service. . 09/02 06:46 Order name: Basic Metabolic Panel; Complete Time: 07:21 09/02 06:46 Order name: CBC with Diff; Complete Time: 07:21 09/02 06:46 Order name: Creatinine for Radiology; Complete Time: 07:21 09/02 06:46 Order name: Hepatic Function; Complete Time: 07:21 09/02 06:46 Order name: Lipase; Complete Time: 07:21 09/02 07:21 Order name: CT Abd/Pelvis - PO and IV Contrast; Complete Time: 09:36 rn 09/02 06:46 Order name: IV Saline Lock; Complete Time: 06:57 09/02 06:46 Order name: Labs collected and sent; Complete Time: 06:57 09/02 09:40 Order name: NG Tube; Complete Time: 09:57 rn Administered Medications: 06:56 Drug: NS 0.9% 1000 ml Route: IV; Rate: 1 bolus; Site: right antecubital; ea 11:40 Follow up: IV Status: Completed infusion; IV Intake: 1000ml bp 06:56 Drug: Zofran 4 mg Route: IVP; Site: right antecubital; ea 09:58 Follow up: Response: Nausea is decreased bp 09:26 Drug: morphine 4 mg Route: IVP; Site: right antecubital; bp 09:58 Follow up: Response: Pain is decreased bp 09:26 Drug: Zofran 4 mg Route: IVP; Site: right antecubital; bp 09:58 Follow up: Response: Nausea is decreased bp 09:26 Drug: NS 0.9% 1000 ml Route: IV; Rate: 125 ml/hr; Site: right antecubital; bp 11:41 Follow up: IV Status: Infusion continued upon admission bp Disposition: 09/02/19 09:43 Hospitalization ordered by Alfredito Castro for Inpatient Admission. Preliminary diagnosis is Mechanical small bowel obstruction. - Bed requested for Telemetry/MedSurg (Inpatient). - Status is Inpatient Admission. ss - Condition is Stable. - Problem is new. - Symptoms are unchanged. UTI on Admission? No Signatures: Dispatcher [employer] EDMS Chencho Vazquez MD MD rn Smirch, Shelby, RN RN ss Gaby Parra, RN RN Stephen Underwood, RN RN ja1 Isidro Nicole, RN Jack Becerril MD MD [id number] Corrections: (The following items were deleted from the chart) 11: 09:43 Hospitalization Ordered by Alfredito Castro MD for Inpatient Admission. Preliminary ja1 diagnosis is Mechanical small bowel obstruction. Bed requested for Telemetry/MedSurg (Inpatient). Status is Inpatient Admission. Condition is Stable. Problem is new. Symptoms are unchanged. UTI on Admission? No. rn 12:01 11:23 09/02/2019 09:43 Hospitalization Ordered by Alfredito Castro MD for Inpatient ss Admission. Preliminary diagnosis is Mechanical small bowel obstruction. Bed requested for Telemetry/MedSurg (Inpatient). Status is Inpatient Admission. Condition is Stable. Problem is new. Symptoms are unchanged. UTI on Admission? No. ja1
[2019-09-02] MEDS ORDERED: MORPHINE 4 MG/ML SYR IV PRN (12:13)
[2019-09-02] MEDS ORDERED: ONDANSETRON 4 MG/2 ML VIAL IV PRN (12:13)
[2019-09-02] MEDS: D5 0.45 NS 1,000 ML IV SCH ×2 (12:36→21:14)
[2019-09-02 12:58] VITALS: BMI 35.4
--- NOTE | 2019-09-02 14:34 | P.HP ---
Date of Service: 09/02/19 PC: This 78-year-old male presents emergency room with severe abdominal pain for diagnosis and treatment. HPC: Patient noticed that he is having severe cramping abdominal pain located in the mid portion of his abdomen. Describes it as severe. Has had episodes like this in the past. Most recently ate some broccoli. PMH: Hypertension, hypercholesterolemia, partial SBO PSHx: Cholecystectomy, aortic aneurysm repair, repair of incisional hernia with mesh SOC: Alendronate sodium. SYS REVIEW: No cough, wheeze, shortness of breath. Recently diagnosed with sleep apnea (has not got his machine yet) states he has otherwise been well. Has frequency of urination O/E awake alert vital signs are stable HEENT: Nasogastric tube in place, nothing in the collection canister Chest: Clear ABD: Soft nontender, nondistended LOCO: Intact DATA: CT scan describes possible mechanical obstruction IMPRESSION: Patient episode SBO, but appears to been relieved. His abdomen is currently soft, no longer having any cramping abdominal pain. Says he feels much improved PLAN: We will place some mineral oil down through the nasogastric tube, allowed to do well, and Dc NG tube. We will repeat a dose tonight. We will start him on clear liquids tomorrow. I anticipate at that time he may be suitable for discharge. I have discussed Mr. Pradhan at length about this hernia and the possibility of having it surgically repaired. He is going to check in with his manager life insurance to see if there is any reason for hesitation. He will do this as an outpatient. It is possible that we will come back to the operating room within the next week or 2 for perhaps a laparoscopy and lyses of adhesions.
[2019-09-02] MEDS: ACETAMINOPHEN 325 MG TABLET PO PRN (16:45)
[2019-09-02] MEDS ORDERED: MINERAL OIL 30 ML UCUP PO SCH (23:00)
[2019-09-02] MEDS ORDERED: MINERAL OIL 30 ML UCUP PO ONE (23:00)
[2019-09-03] MEDS: ACETAMINOPHEN 325 MG TABLET PO PRN (04:22)
[2019-09-03] MEDS: D5 0.45 NS 1,000 ML IV SCH ×2 (04:25→12:13)
[2019-09-03 06:23] LABS: Bilirubin Direct 0.6 mg/dL (0-0.2); Bilirubin Total 2.2 mg/dL (0.2-1.0); Potassium 3.7 mmol/L (3.5-5.1)
[2019-09-03 06:32] LABS: Absolute Lymphocytes (CBC) 1.2 K/uL (0.7-4.9); Basophils % 0.6 % (0-1.3); Hematocrit 40.7 % (39.6-49.0); Lymphocytes % 21.6 % (15.3-44.8); MPV 7.4 fL (7.6-11.3); RBC Red Blood Cell Count 4.08 M/uL (4.33-5.43)
[2019-09-03 08:53] VITALS: O2SAT 94
[2019-09-03 09:29] VITALS: TEMP 97.8
[2019-09-03 10:57] LABS: Urine Appearance CLEAR; Urine Bilirubin NEGATIVE (NEG); Urine Blood NEGATIVE (NEG); Urine Color YELLOW; Urine Glucose 1+ (NEG); Urine Protein NEGATIVE (NEG); Urine Specific Gravity <=1.005 (1.005-1.030)
[2019-09-03 11:15] LABS: Urine Bacteria <20 /HPF (NONE SEEN); Urine Microscopic Reflex ORDER UMIC; Urine RBC <5 /HPF (NONE SEEN)
[2019-09-03 11:16] LABS: Urine Culture Reflex Order NOT NEEDED
[2019-09-03 12:42] VITALS: BP 121/80
--- NOTE | 2019-09-03 14:45 | P.DS ---
Admission Date: 09/02/19 Discharge Date: 09/03/19 Disposition: ROUTINE DISCHARGE Discharge Condition: CRITICAL Hospital Course: This 78-year-old male presents the emergency room with severe abdominal pain for diagnosis and treatment. He has had previous surgeries, including a laparoscopic hernia repair. His CT scan demonstrated a partial small bowel obstruction with a possible adhesions to the mesh. He has had episodes like this in the past. He was admitted for observation and pain control. A nasogastric tube had been placed. The drainage from the NG tube stopped the next day. He was given mineral oil and he started having bowel movements. The NG tube was removed, he was started on clear liquids which is tolerated. He is now deemed fit for discharge. We have discussed with him possible surgical intervention. However on this admission it was not required. We will have him follow up with a guide delegate, a urologist, and also to get his CPAP machine regulated. We will discuss with him an elective procedure in the coming weeks. Vital Signs/Physical Exam: Temp Pulse Resp BP Pulse Ox 97.8 F 73 16 121/80 95 09/03/19 12:00 09/03/19 12:00 09/03/19 12:00 09/03/19 12:00 09/03/19 12:00 Laboratory Data at Discharge: WBC 5.7 K/uL (4.3-10.9) D 09/03/19 05:26 Hgb 13.8 g/dL (13.6-17.9) D 09/03/19 05:26 Hct 40.7 % (39.6-49.0) D 09/03/19 05:26 Plt Count 200 K/uL (152-406) 09/03/19 05:26 Sodium 140 mmol/L (136-145) 09/03/19 05:26 Potassium 3.7 mmol/L (3.5-5.1) 09/03/19 05:26 BUN 13 mg/dL (7-18) 09/03/19 05:26 Creatinine 1.12 mg/dL (0.55-1.3) 09/03/19 05:26 Glucose 134 mg/dL (74-106) H 09/03/19 05:26 Total Bilirubin 2.2 mg/dL (0.2-1.0) H 09/03/19 05:26 AST 25 U/L (15-37) 09/03/19 05:26 ALT 26 U/L (12-78) 09/03/19 05:26 Alkaline Phosphatase 66 U/L (45-117) 09/03/19 05:26 Lipase 110 U/L (73-393) 09/03/19 05:26 Home Medications: Aspirin Chewable [Aspirin Chewable*] 1 tab PO BEDTIME 08/23/18 Atorvastatin Calcium [Lipitor] 40 mg PO BEDTIME 08/23/18 Levothyroxine Sodium 1 tab PO 0630 08/23/18 Losartan Potassium [Cozaar] 1 tab PO BEDTIME 08/23/18 allopurinoL [Zyloprim*] 1 tab PO BEDTIME 08/23/18
== END 2019-09-03 16:04 | disposition home or self-care (01) ==
LOC: ER 06:35 → INTOOBSV 10:29 → ERHOLD 10:29 → 4TH 11:46
PROVIDERS: ADMIT Surgery; ATTEND Surgery
DX: K56.609 Unspecified intestinal obstruction, unspecified as to partial versus complete obstruction (principal); I10 Essential (primary) hypertension; E78.00 Pure hypercholesterolemia, unspecified
CPT/HCPCS: 36415; 74177; 80048; 80076; 81003; 81015; 83690; 85025; 96361; 96374; 96375; 99285; G0378; J2405; J7030; J7799; Q9967